=== PATIENT | female | born 1990 | race Caucasian/White ===

== ENCOUNTER 2017-07-31 08:23 | Emergency (ER) | payer OTHER ==
[2017-07-31 08:35] VITALS: BP 98/50
--- NOTE | 2017-07-31 09:12 | RAD ---
INDICATION: Right thumb injury. TECHNIQUE: 3 views of the right thumb were obtained. FINDINGS: There is soft tissue swelling adjacent to the proximal and distal phalanges. No fracture is seen. Joint spaces appear maintained. IMPRESSION: SOFT TISSUE SWELLING, NO FRACTURE IS SEEN.
--- NOTE | 2017-07-31 09:27 | UC ---
Hand/Wrist HPI - HPI Summary HPI Summary: c/o of jamming right thumb against a gate last night with pain upon flexion of thumb. Denies bruising, swelling - History Of Current Complaint Chief Complaint: UCUpperExtremity Stated Complaint: THUMB INJURY Time Seen by Provider: 07/31/17 08:39 Hx Last Menstrual Period: 07/26/17 - Allergies/Home Medications Allergies/Adverse Reactions: Allergies Allergy/AdvReac Type Severity Reaction Status Date / Time No Known Allergies Allergy Verified 07/31/17 08:31 PMH/Surg Hx/FS Hx/Imm Hx Previously Healthy: Yes - Surgical History Surgical History: Yes Surgery Procedure, Year, and Place: wisdom teeth - Family History Known Family History: Positive: None, Other - Muscular dystrophy Negative: Hypertension, Diabetes - Social History Alcohol Use: Rare Substance Use Type: None Smoking Status (MU): Never Smoked Tobacco - Immunization History Most Recent Influenza Vaccination: 2014 Most Recent Tetanus Shot: 2014 Review of Systems Constitutional: Negative Musculoskeletal: Arthralgia Is Patient Immunocompromised?: No All Other Systems Reviewed And Are Negative: Yes Physical Exam Triage Information Reviewed: Yes Vital Signs: Initial Vital Signs Temp 97.8 F 07/31/17 08:32 Pulse 81 07/31/17 08:32 Resp 16 07/31/17 08:32 BP 98/50 07/31/17 08:32 Pulse Ox 100 07/31/17 08:32 Vital Signs Reviewed: Yes Musculoskeletal: Positive: Other: - no erythema, bruising or soft tissue swelling or deformity noted. Skin is intact, FROM on first MP joint, limited flexion on first PIP joint. Hand/Wrist Course/Dx - Course Course Of Treatment: Spica splint on right hand applied, take ibuprofen 400mg every 8 hrs for 24 hrs. Apply ice for 24 hrs. Increased mobility of thumb as tolerated. - Differential Dx/Diagnosis Provider Diagnoses: Sprain of right thumb Discharge - Discharge Plan Condition: Stable Disposition: HOME Patient Education Materials: Finger Sprain (ED) Referrals: No Primary Care Phys,NOPCP [Primary Care Provider] - Arlene Ramos NP [Medical Doctor] -
== END 2017-07-31 09:37 | disposition home or self-care (01) ==
LOC: UCEAST 08:23
DX: S63.601A Unspecified sprain of right thumb, initial encounter (principal); X50.9XXA Other and unspecified overexertion or strenuous movements or postures, initial encounter; Y92.9 Unspecified place or not applicable
CPT/HCPCS: 99212; G0463

== ENCOUNTER 2017-12-14 09:59 | Emergency (ER) | payer OTHER ==
[2017-12-14 10:17] VITALS: BP 103/65
[2017-12-14 16:37] LABS: EGFR Non-African American 100.6 (>60); Uric Acid 3.8 mg/dL (2.3-6.6)
--- NOTE | 2018-01-25 09:17 | UC ---
Tina Isabel Emily, scribed for Leelee Munoz MD on 12/14/17 at 1023 . Hand/Wrist HPI - HPI Summary HPI Summary: This patient is a 27 year old F presenting to convenient care with a chief complaint of R hand pain that began earlier today. The patient rates the pain 7/ 10 in severity. Symptoms aggravated by nothing. Symptoms alleviated by nothing. Patient reports R hand swelling and decreased ROM. Pt denies dizziness, CP, abd pain, and sore throat. Pt reports having previous episodes of similar symptoms twice in the past 6 months. Pt reports these episodes starting a year and a half ago. Pt reports having similar swelling and pain at the arches of her feet. Pt reports previous episodes resolving in 72 hours with steroids. - History Of Current Complaint Stated Complaint: HAND SWELLING,PAIN Time Seen by Provider: 12/14/17 10:11 Hx Obtained From: Patient Hx Last Menstrual Period: 11/27/17 ?: No Onset/Duration: Sudden Onset, Lasting Hours, Still Present Severity Initially: Moderate Severity Currently: Moderate Pain Intensity: 7 Pain Scale Used: 0-10 Numeric Alleviating Factor(s): Nothing Associated Signs And Symptoms: Positive: Swelling Related History: Dominant Hand Right - Allergies/Home Medications Allergies/Adverse Reactions: Allergies Allergy/AdvReac Type Severity Reaction Status Date / Time No Known Allergies Allergy Verified 12/21/17 07:17 PMH/Surg Hx/FS Hx/Imm Hx Previously Healthy: No Endocrine History: Other Other Endocrine History: Negative diabetes GI/ History: Other Other GI/ History: C. Difficile - Surgical History Surgical History: Yes Surgery Procedure, Year, and Place: wisdom teeth - Family History Known Family History: Positive: Other - Muscular dystrophy Negative: Hypertension, Diabetes - Social History Occupation: Employed Full-time Lives: With Family Alcohol Use: Rare Substance Use Type: None Smoking Status (MU): Never Smoked Tobacco - Immunization History Most Recent Influenza Vaccination: 2014 Most Recent Tetanus Shot: 2014 Review of Systems Constitutional: Other - Negative fever Skin: Other - see hpi Eyes: Negative ENT: Other - Negative sore throat Respiratory: Negative Cardiovascular: Other - Negative CP Gastrointestinal: Other - Negative abd pain Motor: Other - see hpi Musculoskeletal: Decreased ROM, Edema, Other: - Positive R hand pain and right hand swelling Neurological: Other - Negative dizziness Psychological: Negative Is Patient Immunocompromised?: No All Other Systems Reviewed And Are Negative: Yes Physical Exam Triage Information Reviewed: Yes Vital Signs: Initial Vital Signs Temp 98.1 F 12/14/17 10:12 Pulse 56 12/14/17 10:12 Resp 14 12/14/17 10:12 BP 103/65 12/14/17 10:12 Pulse Ox 100 12/14/17 10:12 Vital Signs Reviewed: Yes Eye Exam: Normal ENT Exam: Normal Respiratory Exam: Normal Respiratory: Positive: Other: - No dyspnea, no tachypnea, normal respiratory rate Cardiovascular Exam: Normal Cardiovascular: Positive: RRR, Other: - Good skin colot, good capillary refill Abdominal Exam: Normal Abdomen Description: Positive: Nontender, No Organomegaly, Soft Bowel Sounds: Positive: Present Musculoskeletal Exam: Normal Musculoskeletal: Positive: Strength Intact Neurological Exam: Normal Neurological: Positive: Other: - Nonfocal, grossly intact Psychological Exam: Normal Psychological: Positive: Other: - Conversing easily and appropriately Skin Exam: Normal Hand/Wrist Course/Dx - Course Course Of Treatment: Diff dx is lengthy. Doubt infectious, or directly allergic. Consider immune related ex autoimmune. Rx prednisone, which she will take if worse or no better. Will f/u with PCP, she is working on this, Also recommend Rheumatology f/u (may need to be via pcp). Blood work as available in [employer] reviewed. New blood work ordered today. Questions as posed answered to the best of my ability. - Differential Dx/Diagnosis Provider Diagnoses: Acute R hand swelling, suspect immunological. Discharge - Sign-Out/Discharge Documenting (check all that apply): Patient Departure - Discharge Plan Condition: Stable Disposition: HOME Patient Education Materials: Arthralgia (ED) Forms: *Work Release Referrals: [facility] [place] [facility] [Outside] Additional Instructions: Follow up primary care physician, as soon as you are able. Seek medical attention for worse or new problems in the meantime. - Billing Disposition and Condition Condition: STABLE Disposition: Home The documentation as recorded by the Tina brizuela Emily accurately reflects the service I personally performed and the decisions made by me, Leelee Munoz MD.
== END 2017-12-14 11:00 | disposition home or self-care (01) ==
LOC: UCEAST 09:59
DX: M79.89 Other specified soft tissue disorders (principal); M79.641 Pain in right hand; Z82.0 Family history of epilepsy and other diseases of the nervous system
CPT/HCPCS: 36415; 80053; 84550; 85652; 86038; 86140; 86431; 99212; G0463

== ENCOUNTER 2017-12-21 07:02 | Emergency (ER) | payer OTHER ==
[2017-12-21 07:17] VITALS: BP 119/71
--- NOTE | 2017-12-22 10:19 | UC ---
Josh Isabel Stephanie, scribed for Leelee Munoz MD on 12/21/17 at 0713 . Hand/Wrist HPI - HPI Summary HPI Summary: This pt is a 27 y/o F presenting to with c/o a swollen L hand. Started yesterday afternoon, progressing worse since last night. Fever this morning. No rash. Did get pricked by a thorn yesterday 3rd finger, but doubtful if this was the entire etiology. + fever this am. Hx of similar sx last week on the contralateral hand, seen in [facility]. 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 This can happen unilaterally or bilaterally. These episodes have become increasingly painful and debilitating. Unclear if associated with fever, does have fever today. Steroid tapers have been helpful, but the side effects of the steroids are significant, as such - understandably - she is reluctant to take them unless absolutely necessary. Of overriding concern, is the unknown etiology for this problem. She has blood work drawn over the last several weeks, which without specific results pointing to a direction of problem. Dr. Sosa is in the process of obtaining a PCP. She has an initial appointment scheduled with Dr. York, but not until March, unless an earlier opening occurs prior to then. No sob / cp. No GI issues. No issues. No sore throat, uri. Appetite good. 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 Hx hyperreflexia. Recalls that as a child, she was sick frequently, but is unaware of any primary immune deficiency either in herself or family. No known family genetic issues (immunodef, developmental delay, neurodeg d/o). Unclear if hx POTS. - History Of Current Complaint Stated Complaint: SWOLLEN HAND Time Seen by Provider: 12/21/17 07:15 Hx Obtained From: Patient Hx Last Menstrual Period: 11/27/17 ?: No Mechanism Of Injury: possibly pricked by lane thorn in garden Onset/Duration: Gradual Onset, Still Present Severity Currently: Moderate Aggravating Factor(s): Movement Alleviating Factor(s): Ice Associated Signs And Symptoms: Positive: Swelling, Fever - Allergies/Home Medications Allergies/Adverse Reactions: Allergies Allergy/AdvReac Type Severity Reaction Status Date / Time No Known Allergies Allergy Verified 12/21/17 07:17 PMH/Surg Hx/FS Hx/Imm Hx Previously Healthy: Yes - see hpi Other GI/ History: C. Difficile Psychological History: Anxiety - Surgical History Surgical History: Yes Surgery Procedure, Year, and Place: wisdom teeth - Family History Known Family History: Positive: Other - Muscular dystrophy Negative: Hypertension, Diabetes - Social History Occupation: Employed Full-time Lives: With Family Alcohol Use: Rare Substance Use Type: None Smoking Status (MU): Never Smoked Tobacco Have You Smoked in the Last Year: No - Immunization History Most Recent Influenza Vaccination: 2014 Most Recent Tetanus Shot: 2014 Review of Systems Constitutional: Fever Skin: Other Eyes: Negative ENT: Negative Respiratory: Negative Cardiovascular: Negative Gastrointestinal: Negative Genitourinary: Negative Motor: Negative Neurovascular: Negative Musculoskeletal: Arthralgia, Edema - L hand Neurological: Negative Psychological: Negative Is Patient Immunocompromised?: No All Other Systems Reviewed And Are Negative: Yes Physical Exam Triage Information Reviewed: Yes Appearance: Well-Appearing - sitting up, conversing easily. NAD. Nontoxic general apperance. Uncomfortable hand., Well-Nourished Vital Signs: Initial Vital Signs Temp 101.4 F 12/21/17 07:12 Pulse 70 12/21/17 07:12 Resp 18 12/21/17 07:12 BP 119/71 12/21/17 07:12 Pulse Ox 96 12/21/17 07:12 Vital Signs Reviewed: Yes Eye Exam: Normal - grossly normal ENT Exam: Normal Neck exam: Normal Neck: Positive: Supple Respiratory Exam: Normal Respiratory: Positive: Chest non-tender, Lungs clear, Normal breath sounds, No respiratory distress, No accessory muscle use Cardiovascular Exam: Normal Cardiovascular: Positive: RRR, No Murmur, Pulses Normal, Brisk Capillary Refill Abdominal Exam: Normal Abdomen Description: Positive: Nontender Musculoskeletal Exam: Other - Moves x 4 ext's. Gait steady. R Hand very swollen from wrist to fingertips. Not frankly cellulitic. No apparent focal redness. There is a small puncture site (like a prick) volar 2st phalange 3rd dig. Without focal redness or purulence, or radah fluctuance. Neurological Exam: Normal - grossly non-focal Psychological Exam: Normal - conversing easily and appropriately. Appropriately concerned. Skin Exam: Normal - non-diaphoretic. No visible or reported rash Hand/Wrist Course/Dx - Course Course Of Treatment: I reviewed Dr. Sosa's recent labs as available in [facility]. Given the severity of swelling - darrell in R hand dominant- in conjunction with fever, I recommend transfer to ED for further evaluation and management. She expresses understanding and agreement, will go to ED POV. I spoke with ED physician at time of encounter completion. Ultimately Dr. Sosa will benefit from Rheumatological evaluation. She agrees, and is keen to pursue this. I will reach out to Dr. Zarate. other - declined ibuprofen in [facility] prior to departure, due to possibility of receiving steroids at ED. Questions as posed answered to the best of my ability. Addendum - after the patient's departure, approx 1:15 pm [address] spoke with Dr. Zarate. He kindly will see Dr. Sosa in his office, his office staff will reach out to her to schedule appointment. I called Dr. Sosa, and spoke with her about this. - Differential Dx/Diagnosis Provider Diagnoses: R hand swelling. Recurrent arthralgias hand / foot with edema - Physician Notifications Discussed Patient Care With: Niall Hess Time Discussed With Above Provider: 07:33 Discharge - Sign-Out/Discharge Documenting (check all that apply): Discharge/Admit/Transfer - Transfer - Discharge Plan Condition: Stable Disposition: HOME Patient Education Materials: Fever in Adults (ED), Edema (ED) Referrals: [facility] [Outside] - 3 Days Additional Instructions: Go directly to the ED. Call 911 for problems in the meantime Seek medical attention for worse or new problems in the meantime. - Billing Disposition and Condition Condition: STABLE Disposition: HOME The documentation as recorded by the Josh brizuela Stephanie accurately reflects the service I personally performed and the decisions made by me, Leelee Munoz MD.
== END 2017-12-21 07:50 | disposition home or self-care (01) ==
LOC: UCEAST 07:02
DX: M79.89 Other specified soft tissue disorders (principal); M25.549 Pain in joints of unspecified hand; M25.579 Pain in unspecified ankle and joints of unspecified foot; R60.9 Edema, unspecified
CPT/HCPCS: 99212; G0463

== ENCOUNTER 2017-12-21 08:16 | Emergency (ER) | payer OTHER ==
[2017-12-21] MEDS ORDERED: NS 0.9% 1000 ML* 1,000 ML IV ONE (08:41)
[2017-12-21] MEDS ORDERED: Piperacillin/Tazobac ADVAN(*) 3.375 GM in NS 0.9% 100 ML* 100 ML IVPB ONE (08:42)
[2017-12-21] MEDS ORDERED: methylPREDNISolone 125 MG* 2 ML VIAL IV ONE (08:42)
[2017-12-21 09:07] LABS: ABS Basophils 0 10^3/ul (0-0.2); ABS Eosinophils 0.1 10^3/ul (0-0.6); ABS Lymphocytes 1.4 10^3/ul (1.0-4.8); ABS Monocytes 0.5 10^3/ul (0-0.8); ABS Neutrophils 4.8 10^3/ul (1.5-7.7); ABS Nucleated RBC 0 10^3/ul; Eosinophil % 1.3 % (0-6); Hematocrit 41 % (35-47); Hemoglobin 13.9 g/dl (12.0-16.0); Mean Corpuscular HGB Conc 34 g/dl (31-36); Mean Corpuscular Hemoglobin 32 pg (27-31); Mean Corpuscular Volume 95 fL (80-97); Mean Platelet Volume 10.1 um3 (7.4-10.4); Nucleated Red Blood Cells % 0; Platelet Count 164 10^3/ul (150-450); Red Blood Count 4.34 10^6/ul (4.0-5.4); Red Cell Distribution Width 12 % (10.5-15); White Blood Count 6.9 10^3/ul (3.5-10.8)
[2017-12-21] MEDS ORDERED: diPHENhydraMINE IV* 50 MG/ML 1 ml VIAL (BENADRYL) IV ONE (09:10)
[2017-12-21] MEDS ORDERED: diPHENhydraMINE IV* 50 MG/ML 1 ml VIAL (BENADRYL) ONE (09:12)
--- NOTE | 2017-12-21 09:29 | RAD ---
INDICATION: LEFT hand diffuse swelling; puncture wound while gardening yesterday. Stuck with a thorn at the proximal third digit on the palmar aspect. COMPARISON: May 29, 2017 TECHNIQUE: AP, lateral, and oblique views LEFT hand. REPORT: No conspicuous foreign body or subcutaneous emphysema. Diffuse soft tissue swelling most marked over the dorsum of the wrist and hand through the level of the metacarpal phalangeal joints where it is severe. Negative for fracture, malalignment, or suspicious focal osseous lesion. Bone density appears decreased throughout. IMPRESSION: 1. Severe soft tissue swelling without conspicuous foreign body or subcutaneous emphysema. 2. Bone density appears decreased throughout corresponding with osteopenia range bone mineral density on prior June 01, 2016 DEXA scan.
--- NOTE | 2017-12-21 09:30 | ED ---
Upper Extremity Pain - HPI Summary HPI Summary: Patient is a 27-year-old female who presents to emergency department for pain and swelling to her left hand times one day. Patient states yesterday she was gardening and stuck with a thorn in her left middle finger. She notes when she woke up this morning her hand was significantly swollen and painful. She was initially seen at urgent care where she had a fever of 101.4F and was referred to the ER. Past medical history of anxiety. Pain is exacerbated by moving and bending hand. Patient does note that hand is itchy. She also notes that she has been having episodes of swelling to her hands intermittently over the last several months. Symptoms are moderate in severity. Last tetanus immunization was 2014. - History of Current Complaint Chief Complaint: EDExtremityUpper Stated Complaint: LT HAND SWELLING/FEVER Time Seen by Provider: 12/21/17 08:20 Hx Obtained From: Patient Hx Last Menstrual Period: 11/27/17 - Allergies/Home Medications Allergies/Adverse Reactions: Allergies Allergy/AdvReac Type Severity Reaction Status Date / Time No Known Allergies Allergy Verified 12/21/17 07:17 PMH/Surg Hx/FS Hx/Imm Hx Previously Healthy: Yes Endocrine/Hematology History: Denies: Hx Diabetes, Hx Thyroid Disease Cardiovascular History: Denies: Hx Hypertension Respiratory History: Denies: Hx Asthma, Hx Chronic Obstructive Pulmonary Disease (COPD) GI History: Denies: Hx Ulcer Musculoskeletal History: Denies: Hx Rheumatoid Arthritis, Hx Osteoporosis - Surgical History Surgery Procedure, Year, and Place: wisdom teeth Infectious Disease History: No Infectious Disease History: Reports: Hx Clostridium Difficile - 2010, Hx Shingles Denies: Hx Hepatitis, Hx Human Immunodeficiency Virus (HIV), Hx of Known/ Suspected MRSA, Hx Tuberculosis, Hx Known/Suspected VRE, Hx Known/Suspected VRSA , History Other Infectious Disease, Traveled Outside the [place] in Last 30 Days - Family History Known Family History: Positive: None, Other - Muscular dystrophy Negative: Hypertension, Diabetes - Social History Occupation: Employed Full-time Lives: With Family Alcohol Use: Rare Substance Use Type: Reports: None Smoking Status (MU): Never Smoked Tobacco Review of Systems Positive: Fever Positive: Other - pain and swelling to left hand Neurological: Negative Positive: Anxious All Other Systems Reviewed And Are Negative: Yes Physical Exam Triage Information Reviewed: Yes Vital Signs On Initial Exam: Initial Vitals Temp Pulse Resp BP Pulse Ox 98.3 F 65 17 110/71 100 12/21/17 08:28 12/21/17 08:28 12/21/17 08:28 12/21/17 08:28 12/21/17 08:28 Vital Signs Reviewed: Yes Appearance: Positive: Well-Appearing - Patient sitting up in bed in no acute distress. Mother present. Skin: Positive: Warm, Dry Head/Face: Positive: Normal Head/Face Inspection Eyes: Positive: Normal Neck: Positive: Supple Musculoskeletal: Positive: Other - Marked edema noted to the left hand diffusely extending to the distal forearm. Good palpable radial pulse. Brisk capillary refill. Small puncture wound noted to the mid aspect of the third left digit, palmar aspect. No drainage, induration or fluctuance. No overlying erythema. Digits are in a slightly flexed position with mild pain with extension. Neurological: Positive: Normal, CN Intact II-III Psychiatric: Positive: Anxious Diagnostics - Vital Signs Vital Signs Temp Pulse Resp BP Pulse Ox 12/21/17 08:33 70 99 12/21/17 08:28 98.3 F 65 17 110/71 100 - Laboratory Lab Results: Lab Results 12/21/17 Range/Units 08:52 WBC 6.9 (3.5-10.8) 10^3/ul RBC 4.34 (4.0-5.4) 10^6/ul Hgb 13.9 (12.0-16.0) g/dl Hct 41 (35-47) % MCV 95 (80-97) fL MCH 32 H (27-31) pg MCHC 34 (31-36) g/dl RDW 12 (10.5-15) % Plt Count 164 (150-450) 10^3/ul MPV 10.1 (7.4-10.4) um3 Neut % (Auto) 70.1 (38-83) % Lymph % (Auto) 21.0 L (25-47) % Coleman % (Auto) 7.2 H (0-7) % Eos % (Auto) 1.3 (0-6) % Baso % (Auto) 0.4 (0-2) % Absolute Neuts (auto) 4.8 (1.5-7.7) 10^3/ul Absolute Lymphs (auto) 1.4 (1.0-4.8) 10^3/ul Absolute Monos (auto) 0.5 (0-0.8) 10^3/ul Absolute Eos (auto) 0.1 (0-0.6) 10^3/ul Absolute Basos (auto) 0 (0-0.2) 10^3/ul Absolute Nucleated RBC 0 10^3/ul Nucleated RBC % 0 ESR Pending Result Diagrams: 12/21/17 08:52 12/21/17 08:52 Lab Statement: Any lab studies that have been ordered have been reviewed, and results considered in the medical decision making process. Course/Dx - Course Course Of Treatment: Patient presenting with significant edema to her left hand after sustaining a puncture wound from a lane thorn yesterday. Patient was noted to have a fever 101.4F prior to arrival but is afebrile in the ER with stable vital signs. Patient was examined by Dr. Hess as well. Concern for flexor tenosynovitis versus allergic reaction given patient's history of hand edema and itching currently. Labs, x-ray were ordered as well as a dose of IV Zosyn and Solu-Medrol. Hand surgery was immediately consulted. I spoke with Dr. Pimentel at 0845 who states he will have one of his collegues exam pt. in the ER. Labs are unremarkable. Xray shows soft tissue edema without FB or subcutaneous gas, reading pe radiology. At 1200 pt. was examined by ALYCIA foley Cynthia. At this time pt.'s hand as moderately reduced in size after medications and she has almost full ROM of digits. Hand is not painful. Korin spoke with Zenaida Pimentel who feels pt. can be dc home today on antibx and NSAIDS and he will see her in office tomorrow. Given pt.'s history of recurrent hand swelling consider a rheumatological or immunological disorder. Nurse did attempt to contact rheumatology office but they not currently available. Pt. given info for office. To f.u with ortho. tomorrow as scheduled. To return to ER for increased swelling, redness, fever. - Diagnoses Differential Diagnosis/HQI/PQRI: Positive: Osteomyelitis, Septic Arthritis, Other - Flexor tenosynovitis Provider Diagnoses: Allergic reaction, Hand edema Discharge - Sign-Out/Discharge Documenting (check all that apply): Discharge/Admit/Transfer - Discharge Plan Condition: Good Disposition: HOME Prescriptions: Amoxicillin/Clavulanate TAB* [Augmentin TAB 875*] 875 mg PO BID #20 tab Naproxen [Naproxen 500 mg tab] 500 mg PO Q12H #20 tablet. Patient Education Materials: Tenosynovitis (ED), General Allergic Reaction (ED) Referrals: Dank Oconnor MD [Medical Doctor] - No Primary Care Phys,NOPCP [Primary Care Provider] - Latrell Zarate MD [Medical Doctor] - Additional Instructions: Follow up with Dr. Pimentel tomorrow as scheduled, 12/22/17 Take medication as directed Schedule an appointment with rheumatology as well for further evaluation Return to ER for increased swelling, redness, fever, inability to straighten finger or if concerned - Billing Disposition and Condition Condition: GOOD Disposition: HOME
[2017-12-21 09:31] LABS: EGFR Non-African American 81.3 (>60)
[2017-12-21 13:05] VITALS: BP 128/68
--- NOTE | 2017-12-21 14:43 | CONSULT ---
Consult Consult: Orthopedic ER Consultation Date of Consult: 12/21/17 Attending Provider: Dr Dank Oconnor Chief Complaint: pain and swelling of the left hand, concern for flexor tendon tenosynovitis HPI: Patient is a 27 year old right hand dominant female with a one day history of pain and swelling of her left hand. Onset yesterday afternoon after a lane thorn prick to her middle finger while gardening. Swelling and decreased range of motion began within 30 minutes of the prick, somewhat relieved by ibuprofen. Upon waking this morning, patient's entire left hand was swollen with redness up the volar side of the forearm. She was seen at urgent care with a reported fever or 101.4 and was referred to the emergency room. Since arrival she has received IV zosyn and solu-medrol. At time of my consult she reports no pain, decreased swelling and decreased redness. She denies fever, chills, malaise. Patient has had these symptoms four times in the past two years, most recently one week ago with her right hand affected. She reports no prior trauma to her hands and on previous occasions, no aggravating factor to elicit the swelling and redness. Previous episodes have resolved without treatment including no antibiotic or antinflammatory therapy. She has been asked to see rheumatology and immunology by the urgent care she has seen previously, though due to lack of a primary care provider she has had difficulty getting an appointment. Past Medical History: Generalized anxiety disorder for which she takes paxil daily with good control of symptoms. Family history: Mother and father with muscular dystrophy Social history: Works as a career representative. Denies smoking and drug use. Occasional social alcohol use. Past surgical history: [place] teeth extraction, has never received general anesthesia. Review of Systems: General: Denies subjective fever, chills, malaise, fatigue, recent illness, no known tick bites HEENT: no headache Cardiac: Denies chest pain or irregular beats Respiratory: Denies shortness of breath GI: Denies abd pain, nausea, vomiting, diarrhea Lymph: No known lymphadenopathy MSK: No joint pain aside from mild pain of left hand with movement, restricted ROM of digits Neuro: Denies tingling or numbness Skin: Denies rash. Physical Exam: General: Well appearing, NAD HEENT: NCAT, EOMi, grossly normal hearing. No associated lip swelling. Cardiac: S1S2 RRR no appreciable murmur Respiratory: CTA B/L no wheezes, rales or rhonchi LUE: Left hand with edema throughout including all 5 digits as well as the palmar and dorsal surface of the hand with extension into volar forearm. Erythema of volar forearm only, receding from pen marking made earlier today. 1mm punctate lesion over distal phlaynx of 3rd digit with no surrounding erythema or discharge. All 5 digits held in slight flexion though patient is able to passively and actively fully extend all digits without significant pain , only minimal discomfort over MCP of 3rd digit with full passive ROM. Flexion intact throughout all digits. No tenderness along flexor sheath. Wrist and elbow flexion and extension intact. Forearm supple. Moves shoulder well. Moves RUE and b/l LE well without swelling in other extremities. Neuro: Sensation intact to light touch throughout LUE. LAD: No cervical, axillary or epitrochlear lymphadenopathy on the left side. Diagnostic Studies: Patient Name: GEORGIA FARRELL Medical Record#: [id number] Ordering Physician: Alexander VIVAR Acct.#: [id number] : 1990 Age: 27 Sex: F Location: EMERGENCY DEPARTMENT Exam Date: 12/21/17838 ADM Status: REG ER Order Information: HAND - LEFT MINIMUM 3 VIEWS Accession Number: [id number] CPT: 43242 INDICATION: LEFT hand diffuse swelling; puncture wound while gardening yesterday. Stuck with a thorn at the proximal third digit on the palmar aspect. COMPARISON: May 29, 2017 TECHNIQUE: AP, lateral, and oblique views LEFT hand. REPORT: No conspicuous foreign body or subcutaneous emphysema. Diffuse soft tissue swelling most marked over the dorsum of the wrist and hand through the level of the metacarpal phalangeal joints where it is severe. Negative for fracture, malalignment, or suspicious focal osseous lesion. Bone density appears decreased throughout. IMPRESSION: 1. Severe soft tissue swelling without conspicuous foreign body or subcutaneous emphysema. 2. Bone density appears decreased throughout corresponding with osteopenia range bone mineral density on prior June 01, 2016 DEXA scan. Vital Signs Temp 98.1 F 12/21/17 13:04 Pulse 80 12/21/17 13:04 Resp 16 12/21/17 13:04 BP 128/68 12/21/17 13:04 Pulse Ox 99 12/21/17 13:04 Intake & Output 12/20/17 12/21/17 12/21/17 18:59 06:59 18:59 Intake Total 1100 Balance 1100 Weight 138 lb Intake: IV Fluids 1100 Laboratory Last Values WBC 6.9 10^3/ul (3.5-10.8) 12/21/17 08:52 RBC 4.34 10^6/ul (4.0-5.4) 12/21/17 08:52 Hgb 13.9 g/dl (12.0-16.0) 12/21/17 08:52 Hct 41 % (35-47) 12/21/17 08:52 MCV 95 fL (80-97) 12/21/17 08:52 MCH 32 pg (27-31) H 12/21/17 08:52 MCHC 34 g/dl (31-36) 12/21/17 08:52 RDW 12 % (10.5-15) 12/21/17 08:52 Plt Count 164 10^3/ul (150-450) 12/21/17 08:52 MPV 10.1 um3 (7.4-10.4) 12/21/17 08:52 Neut % (Auto) 70.1 % (38-83) 12/21/17 08:52 Lymph % (Auto) 21.0 % (25-47) L 12/21/17 08:52 Braxton % (Auto) 7.2 % (0-7) H 12/21/17 08:52 Eos % (Auto) 1.3 % (0-6) 12/21/17 08:52 Baso % (Auto) 0.4 % (0-2) 12/21/17 08:52 Absolute Neuts (auto) 4.8 10^3/ul (1.5-7.7) 12/21/17 08:52 Absolute Lymphs (auto) 1.4 10^3/ul (1.0-4.8) 12/21/17 08:52 Absolute Monos (auto) 0.5 10^3/ul (0-0.8) 12/21/17 08:52 Absolute Eos (auto) 0.1 10^3/ul (0-0.6) 12/21/17 08:52 Absolute Basos (auto) 0 10^3/ul (0-0.2) 12/21/17 08:52 Absolute Nucleated RBC 0 10^3/ul 12/21/17 08:52 Nucleated RBC % 0 12/21/17 08:52 ESR 16 mm/Hr (0-14) H 12/21/17 08:52 Sodium 137 mmol/L (139-145) L 12/21/17 08:52 Potassium 4.0 mmol/L (3.5-5.0) 12/21/17 08:52 Chloride 106 mmol/L (101-111) 12/21/17 08:52 Carbon Dioxide 27 mmol/L (22-32) 12/21/17 08:52 Anion Gap 4 mmol/L (2-11) 12/21/17 08:52 BUN 17 mg/dL (6-24) 12/21/17 08:52 Creatinine 0.83 mg/dL (0.51-0.95) 12/21/17 08:52 Est GFR ( Amer) 104.5 (>60) 12/21/17 08:52 Est GFR (Non-Af Amer) 81.3 (>60) 12/21/17 08:52 BUN/Creatinine Ratio 20.5 (8-20) H 12/21/17 08:52 Glucose 78 mg/dL (70-100) 12/21/17 08:52 Lactic Acid 0.9 mmol/L (0.5-2.0) 12/21/17 08:52 Calcium 9.4 mg/dL (8.6-10.3) 12/21/17 08:52 Total Bilirubin 0.60 mg/dL (0.2-1.0) 12/21/17 08:52 AST 15 U/L (13-39) 12/21/17 08:52 ALT 10 U/L (7-52) 12/21/17 08:52 Alkaline Phosphatase 58 U/L (34-104) 12/21/17 08:52 C-Reactive Protein 2.00 mg/L (< 5.00) 12/21/17 08:52 Total Protein 7.1 g/dL (6.4-8.9) 12/21/17 08:52 Albumin 4.3 g/dL (3.2-5.2) 12/21/17 08:52 Globulin 2.8 g/dL (2-4) 05/29/18 08:52 Albumin/Globulin Ratio 1.5 (1-3) 12/21/17 08:52 Assessment: Left hand swelling and erythema with concern for flexor tendon tenosynovitis, this diagnosis less likely at this time due to lack of pain with full extension, lack of tenderness with palpation along tendon sheath, previous history of same presentation with spontaneous resolution. Plan: Case and plan Discussed with Dr. Dank Oconnor. PO antibiotics, naproxen, follow up in office with Dr. Oconnor tomorrow. Patient educated to return to emergency room with worsening swelling, erythema, pain, loss of range of motion, fever or any other concerns.
== END 2017-12-21 13:04 | disposition home or self-care (01) ==
LOC: ED 08:16
DX: T78.40XA Allergy, unspecified, initial encounter (principal); R60.0 Localized edema
CPT/HCPCS: 36415; 80053; 83605; 85025; 85652; 86140; 87040; 96361; 96365; 96366; 96375; 99282; J1200; J2543; J2930

== ENCOUNTER 2019-01-27 13:19 | Emergency (ER) | payer OTHER ==
[2019-01-27 13:54] VITALS: BP 92/55
--- NOTE | 2019-01-27 15:02 | UC ---
Laceration HPI - HPI Summary HPI Summary: 28 y/o female presents to the urgent care c/o left thumb laceration w/ a sharp pruning radha at work today around 1245pm. 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 Pt states bleeding stopped w/ pressure and she irrigated he thumb well. She took and ibuprofen PO to alleviate symptoms. Pain is 3/10. Pt is UTD w/ Tetanus vaccine in 2015. Pt denies numbness or tingling sensation over the left thumb and can move thumb w/ o any problem. Pt denies fever, previosu injury, SOB, chest pain,abdominal pain , N/v/d. - History Of Current Complaint Chief Complaint: UCLaceration Stated Complaint: LT THUMB LAC Time Seen by Provider: 01/27/19 14:54 Hx Obtained From: Patient Hx Last Menstrual Period: 1 month ago Laceration Location: Finger - base of the left thumb Mechanism Of Injury: Sharp Trauma Onset/Duration: Lasting Hours - 2 hrs Severity: Mild Pain Intensity: 3 Pain Scale Used: 0-10 Numeric Aggravating Factors: Movement Related History: Occupational Injury - Allergies/Home Medications Allergies/Adverse Reactions: Allergies Allergy/AdvReac Type Severity Reaction Status Date / Time No Known Allergies Allergy Verified 01/27/19 13:54 Home Medications: Home Medications Naproxen [Naproxen 500 mg tab] 500 mg PO Q12H PRN 01/27/19 [History Confirmed ] Vitamin B Complex CAP* [B Complex CAP*] DAILY 01/27/19 [History] PMH/Surg Hx/FS Hx/Imm Hx Previously Healthy: Yes - Pt denies PMHX - Surgical History Surgical History: Yes Surgery Procedure, Year, and Place: wisdom teeth - Family History Known Family History: Positive: Other - Muscular dystrophy Negative: Hypertension, Diabetes - Social History Occupation: Employed Full-time Lives: With Family Alcohol Use: None Substance Use Type: None Smoking Status (MU): Never Smoked Tobacco - Immunization History Most Recent Influenza Vaccination: 2014 Most Recent Tetanus Shot: Jun 06, 2015 Hx Tetanus, Diphtheria Vaccination: Yes - 2014 Review of Systems All Other Systems Reviewed And Are Negative: Yes Constitutional: Positive: Negative Skin: Positive: Other - laceration of left thumb w/ prunning scissor Eyes: Positive: Negative ENT: Positive: Negative Respiratory: Positive: Negative Cardiovascular: Positive: Negative Gastrointestinal: Positive: Negative Genitourinary: Positive: Negative Motor: Positive: Negative Neurovascular: Positive: Negative Musculoskeletal: Positive: Other: - left thumb pain s/p laceration Neurological: Positive: Negative Psychological: Positive: Negative Is Patient Immunocompromised?: No Physical Exam - Summary Physical Exam Summary: Vital Signs Reviewed: Yes General: well developed, well nourished female sitting in the examining table w/ o any apparent distress Eye Exam: Normal Eyes: Positive: Conjunctiva Clear - PERRLA, EOMI, fundi grossly normal ENT: Positive: Normal ENT inspection, Hearing grossly normal, Pharynx normal, TMs normal Neck: Positive: Supple, Nontender, No Lymphadenopathy Respiratory: Positive: Chest non-tender, Lungs clear, Normal breath sounds, No respiratory distress Cardiovascular: Positive: RRR, No Murmur, Pulses Normal, Brisk Capillary Refill Abdomen Description: Positive: Nontender, No Organomegaly, Soft. Negative: CVA Tenderness (R), CVA Tenderness (L) Bowel Sounds: Positive: Present Musculoskeletal: Positive: Strength Intact, ROM Intact, No Edema Neurological: Positive: Alert, Muscle Tone Normal Psychological Exam: Normal Skin: Positive: positive medial aspect at the base of the left thumb with a small linear superficial laceration about 0.5cm in size, non bleeding, no foreign body observed. mild tenderness to palpation,no bruisin or swelling . FROM of LF thumb and left hand, sensation intact, capillary refill brisk, and pulses WNL. Triage Information Reviewed: Yes Vital Signs: Initial Vital Signs Temp 98.4 F 01/27/19 13:49 Pulse 63 01/27/19 13:49 Resp 16 01/27/19 13:49 BP 92/55 01/27/19 13:49 Pulse Ox 99 01/27/19 13:49 Laceration Repair - Laceration Repair 1 Description: Linear Laceration Size After Repair: Length (cm) - 0.5cm Modified For Repair: No Cleansing Completed Via Routine Prep: Yes Irrigation With Pressure Irrigation Device: Yes Closure Material: Skin Adhesive, SteriStrips - 3 Suture Of: Skin Laceration Course/Dx - Course/Dx Course Of Treatment: 28 y/o female presents to the urgent care c/o left thumb laceration w/ a sharp pruning radha at work today around 1245pm. 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 Pt states bleeding stopped w/ pressure and she irrigated he thumb well. She took and ibuprofen PO to alleviate symptoms. Pain is 3/10. Pt is UTD w/ Tetanus vaccine in 2015. Pt denies numbness or tingling sensation over the left thumb and can move thumb w/ o any problem. Pt denies fever, previosu injury, SOB, chest pain,abdominal pain , N/v/d. Hx obtained. PT w/ positive medial aspect at the base of the left thumb with a small linear superficial laceration about 0.5cm in size, non bleeding, no foreign body observed. mild tenderness to palpation,no bruising or swelling . FROM of LF thumb and left hand, sensation intact, capillary refill brisk, and pulses WNL on examination. LACERATION PROCEDURE NOTE: . Copious irrigation was done with saline and the wound explored. There was no FB or deep structure injury noted. wound cleaned w/ Iodine swabs. Laceration closed w / skin adhesive and 3 steri-strips. Wound dressed w/ sterile gauze.The Pt tolerated the procedure well without adverse effects. Neurovascular intact and FROM of left thumb. Pt advised if any signs of infection develop to immediately return to the urgent care of PCP for further management and treatment. Pt understood and agreed and left the clinic ambulating A&Ox3. - Differential Dx - Laceration/Wound Differental Diagnoses: Abrasion, Avulsion, Laceration, Puncture Wound - Diagnosis Provider Diagnosis: Laceration of left thumb Discharge - Sign-Out/Discharge Documenting (check all that apply): Patient Departure - d/c home All imaging exams completed and their final reports reviewed: No Studies - Discharge Plan Condition: Stable Disposition: HOME Patient Education Materials: Laceration (ED), Skin Adhesive Care (ED) Referrals: [facility] [place] [facility] RE[facility]ERR[facility] [Outside] - 7 Days Additional Instructions: 1-Please apply Bacitracin topical antibiotic over the wound after steri-strips fall off. Keep wound clean and dry 2-Take Ibuprofen or Tylenol PO q6-8hrs prn for pain or swelling. 3- If you develop fever or redness around your wound please return to the Urgent care or your PCP for further management. - Billing Disposition and Condition Condition: STABLE Disposition: Home
== END 2019-01-27 15:44 | disposition home or self-care (01) ==
LOC: UCEAST 13:19
DX: S61.012A Laceration without foreign body of left thumb without damage to nail, initial encounter (principal); W27.1XXA Contact with garden tool, initial encounter; Y93.89 Activity, other specified; Y92.210 Daycare center as the place of occurrence of the external cause; Y99.0 Civilian activity done for income or pay
CPT/HCPCS: 12001; 99211; G0463